=== PATIENT | female | born 1965 | race Caucasian/White ===

== ENCOUNTER 2017-11-06 16:05 | Observation (INO) | payer OTHER ==
[~2017-11-06] VITALS: Ht 167.6 cm; Wt 70.8 kg
[2017-11-06] MEDS ORDERED: HYDROMORPHONE 1MG/1ML INJ IV STA (17:33)
[2017-11-06] MEDS ORDERED: PANTOPRAZOLE 40 MG 10ML VIAL IV STA (17:33)
[2017-11-06] MEDS ORDERED: ONDANSETRON HCL INJ 2 MG/ML VIAL IV STA (17:33)
[2017-11-06 17:48] LABS: BASOPHILS # (AUTO) 0.1 (0.0-0.1); BASOPHILS % 1.9 % (0.0-1.0); EOSINOPHILS # (AUTO) 0.1 (0.0-0.4); EOSINOPHILS % 2.4 % (0.0-6.0); HEMOGLOBIN 11.8 g/dL (12.0-16.0); LYMPHOCYTES # (AUTO) 0.6 (1.0-3.2); LYMPHOCYTES % 13.8 % (18.0-39.1); MEAN CORPUSCULAR HEMOGLOBIN 29.1 pg (28-32); MEAN CORPUSCULAR HGB CONC 32.8 g/dL (31-35); MEAN CORPUSCULAR VOLUME 88.7 fL (81-99); MONOCYTES # (AUTO) 0.7 (0.2-0.8); MONOCYTES % 16.9 % (4.4-11.3); NEUTROPHILS # (AUTO) 2.7 (2.1-6.9); NEUTROPHILS % 64.8 % (38.7-80.0); RED BLOOD COUNT 4.06 x10e6/uL (3.6-5.1); RED CELL DISTRIBUTION WIDTH 15.9 % (11.7-14.4)
[2017-11-06 17:50] LABS: PLATELET COUNT 79 x10e3/uL (140-360)
[2017-11-06 18:00] LABS: ALANINE AMINOTRANSFERASE 34 IU/L (0-55); ALBUMIN 3.3 g/dL (3.5-5.0); ALBUMIN/GLOBULIN RATIO 1.1 (0.8-2.0); ALKALINE PHOSPHATASE 186 IU/L (40-150); AMYLASE 40 U/L (25-125); ANION GAP 13.5 mmol/L (8-16); BLOOD UREA NITROGEN < 5 mg/dL (7-26); CALCIUM 8.8 mg/dL (8.4-10.2); CARBON DIOXIDE 30 mmol/L (22-29); CHLORIDE 103 mmol/L (98-107); CREATININE, SERUM 0.72 mg/dL (0.57-1.11); EST GLOMERULAR FILTRATION RATE > 60 ML/MIN (60-); GLUCOSE 80 mg/dL (74-118); LIPASE 21 U/L (8-78); POTASSIUM 3.5 mmol/L (3.5-5.1); SODIUM 143 mmol/L (136-145)
[2017-11-06 18:01] LABS: BUN/CREATININE RATIO 7 (6-25)
[2017-11-06] MEDS ORDERED: PHYTONADIONE 10 MG/ML AMP SQ NR (18:45)
[2017-11-06 18:52] LABS: CLARITY,URINE SL CLOUDY (CLEAR); COLOR,URINE YELLOW (YELLOW)
[2017-11-06 18:53] LABS: BILIRUBIN,URINE NEGATIVE (NEGATIVE); KETONES,URINE NEGATIVE (NEGATIVE); LEUKOCYTE ESTERASE ,URINE 1+ (NEGATIVE); NITRITE,URINE NEGATIVE (NEGATIVE); PROTEIN,URINE DIPSTICK NEGATIVE (NEGATIVE); URINE UROBILINOGEN 0.2 mg/dL (0.2 - 1)
[2017-11-06] MEDS ORDERED: OXYCODONE HCL IR 5 MG TAB PO PRN (19:00)
[2017-11-06 19:02] LABS: INR 2.32; PARTIAL THROMBOPLASTIN TIME 37.4 seconds (23.8-35.5); PROTHROMBIN TIME 23.9 seconds (11.9-14.5)
[2017-11-06 19:06] LABS: BACTERIA,URINE MODERATE /HPF; EPITHELIAL CELLS,URINE FEW /LPF; TRANSITIONAL EPI CELLS,URINE FEW
[2017-11-06] MEDS: D5.45%NS/KCL 20MEQ 1,000 ML IV SCH (19:34)
[2017-11-06 20:41] VITALS: BP 128/94
[2017-11-06] MEDS ORDERED: ZOLPIDEM TARTRATE 5 MG TAB PO PRN (21:15)
[2017-11-06] MEDS: PROPRANOLOL HCL 10 MG TAB PO SCH (21:44)
[2017-11-06] MEDS: AMITRIPTYLINE HCL 25 MG TAB PO SCH (21:47)
[2017-11-06 22:10] VITALS: BP 128/94
[2017-11-06] MEDS ORDERED: SYMBICORT 16010.2 GM INH (23:10)
[2017-11-06] MEDS ORDERED: AMITRIPTYLINE H25 MG PO (23:10)
[2017-11-06] MEDS ORDERED: PROPRANOLOL HCL10 MG PO (23:30)
[2017-11-06] MEDS ORDERED: COMBIVENT RESPIM4 GM IH (23:30)
[2017-11-06] MEDS ORDERED: COUMADIN2 MG PO (23:30)
[2017-11-06] MEDS ORDERED: NEXIUM40 MG PO (23:30)
[2017-11-06] MEDS ORDERED: AMBIEN10 MG PO (23:30)
[2017-11-06] MEDS ORDERED: SUCRALFATE1 G/10 ML PO (23:30)
[2017-11-06] MEDS ORDERED: LASIX40 MG PO (23:30)
[2017-11-06] MEDS ORDERED: SEROQUEL25 MG PO (23:30)
[2017-11-06] MEDS ORDERED: BENADRYL25 M1 PO (23:30)
[2017-11-06] MEDS ORDERED: SINGULAIR10 MG INH (23:30)
[2017-11-06] MEDS ORDERED: PREDNISONE20 MG PO (23:30)
[2017-11-06] MEDS ORDERED: XIFAXAN550 MG PO (23:30)
[2017-11-06] MEDS ORDERED: DIAZEPAM5 MG PO (23:30)
[2017-11-06] MEDS ORDERED: SPIRONOLACTONE25 MG PO (23:30)
[2017-11-06 23:50] VITALS: BP 93/62
[2017-11-07] VITALS (9 sets, daily range): BP systolic 82–111; BP diastolic 54–74
[2017-11-07 00:06] LABS: HEMATOCRIT 32.2 % (34.2-44.1); HEMOGLOBIN 10.5 g/dL (12.0-16.0)
[2017-11-07 05:51] LABS: HEMATOCRIT 31.1 % (34.2-44.1); HEMOGLOBIN 10.2 g/dL (12.0-16.0)
[2017-11-07 06:09] LABS: ANION GAP 10.6 mmol/L (8-16); BLOOD UREA NITROGEN 6 mg/dL (7-26); BUN/CREATININE RATIO 9 (6-25); CALCIUM 8.7 mg/dL (8.4-10.2); CARBON DIOXIDE 30 mmol/L (22-29); CHLORIDE 106 mmol/L (98-107); CREATININE, SERUM 0.67 mg/dL (0.57-1.11); EST GLOMERULAR FILTRATION RATE > 60 ML/MIN (60-); GLUCOSE 96 mg/dL (74-118); POTASSIUM 3.6 mmol/L (3.5-5.1); SODIUM 143 mmol/L (136-145)
[2017-11-07] MEDS ORDERED: MORPHINE SULFATE INJ 4 MG/ML INJ IV PRN (06:45)
[2017-11-07] MEDS ORDERED: LEVOFLOXACIN 500MG/D5W 100ML 100 ML IV SCH (07:00)
[2017-11-07] MEDS ORDERED: BUDESONIDE/FORMOTEROL 160/4.5MCG INHALER INH SCH (07:00)
[2017-11-07] MEDS: RIFAXIMIN 550 MG TABLET PO SCH ×2 (07:48→22:16)
[2017-11-07] MEDS: CEFTRIAXONE SOD 1 GM VIAL IV SCH (07:48)
[2017-11-07] MEDS: SUCRALFATE 1 GM/10 ML SUSP PO SCH ×4 (07:48→22:16)
[2017-11-07] MEDS: MORPHINE SULFATE 2 MG/ML SYR IV PRN (07:49)
[2017-11-07] MEDS ORDERED: QUETIAPINE FUMARATE 25 MG TAB PO SCH (09:00)
[2017-11-07] MEDS ORDERED: MONTELUKAST SODIUM 10 MG TAB PO SCH (09:00)
--- NOTE | 2017-11-07 09:57 | Consultation ---
DATE OF CONSULTATION: November 07, 2017 GASTROENTEROLOGY CONSULTATION REASON FOR CONSULTATION: Hematemesis. HISTORY OF PRESENT ILLNESS: Ms. Wan is a 52-year-old woman with known history of hepatitis C, alcoholic cirrhosis, history of portal hypertension, and esophageal variceal banding. She had a large volume of red emesis at home. She denies any melena or hematochezia. She says she is very hungry. She has chronic abdominal pain and complains about umbilical hernia. Otherwise, she denies any increase in her abdominal pain. She denies taking NSAIDs. Her last paracentesis was over a week ago at [facility]. PAST MEDICAL HISTORY 1. Hepatitis C. 2. 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 3. Hypertension. 4. Portal hypertension with history of esophageal varices and chronic ascites requiring paracentesis. 5. History of intra-abdominal thrombosis. She says related to her bowel. Currently on Coumadin. MEDICATIONS: Are reviewed. Please see [facility] medication reconciliation form. ALLERGIES: ARE REVIEWED. PLEASE SEE [facility] MEDICATION RECONCILIATION FORM. SOCIAL HISTORY: Positive for ongoing tobacco. Prior alcohol. REVIEW OF SYSTEMS: A 12-system review is positive for that mentioned in the HPI, otherwise unremarkable. PHYSICAL EXAMINATION GENERAL: She is awake and oriented. However, she slurs her speech. HEENT: Pupils are equal, round and reactive to light. NECK: Supple. LUNGS: Clear. CARDIOVASCULAR: S1 and S2. ABDOMEN: Soft. It is protuberant with ascites. She has a periumbilical hernia, which is discolored. However, reducible and mildly tender. EXTREMITIES: No clubbing or cyanosis. PSYCH: Calm and cooperative. NEUROLOGIC: Alert and oriented, but slurs speech. HEM/ONC: No bruising or adenopathy. The electronic health records were reviewed for laboratory and radiologic studies, as well as history. ASSESSMENT 1. Reported hematemesis with a history of portal hypertension. 2. History of esophageal varices with banding: Noted a drop in her hemoglobin. 3. Cirrhosis related to hepatitis C and alcohol. 4. Elevated liver function tests secondary to the above, likely hepatitis C. 5. Coagulopathy which is at least in part related to anticoagulation for history of venous thrombosis. PLAN: At the current time, will need to do an upper endoscopy for risk stratification and therapeutics. Ideally, we would reverse her anticoagulation for this procedure. Will plan on this urgently today after some FFP. I discussed risks, benefits and alternatives with the patient. She is in agreement. For now, will continue n.p.o. status and supportive care. Thank you very much for asking me to see Ms. Wan. Any questions or concerns, please do not hesitate to contact me. I will follow with you closely. Job#: [id number] HECTOR
[2017-11-07] MEDS: PANTOPRAZOLE 40 MG 10ML VIAL IV SCH ×2 (10:12→18:35)
[2017-11-07] MEDS: SPIRONOLACTONE 25 MG TAB PO SCH (10:12)
[2017-11-07] MEDS: MONTELUKAST SODIUM 10 MG TAB PO SCH (10:13)
[2017-11-07] MEDS: PROPRANOLOL HCL 10 MG TAB PO SCH ×2 (10:13→18:35)
[2017-11-07] MEDS: FUROSEMIDE 40 MG TAB PO SCH (10:13)
[2017-11-07] MEDS: QUETIAPINE FUMARATE 100 MG TAB PO SCH ×2 (10:13→18:35)
[2017-11-07] MEDS: DIAZEPAM 5 MG TAB PO SCH ×3 (10:13→22:16)
[2017-11-07] MEDS ORDERED: SODIUM CHLORIDE 0.9% 250ML 250 ML ONE (10:37)
--- NOTE | 2017-11-07 11:32 | History and Physical ---
PRIMARY CARE PHYSICIAN: Dr. Silvio Fuentes CHIEF COMPLAINT: Vomiting blood. HISTORY OF PRESENT ILLNESS: This is a 52-year-old woman with a history of abdominal venous thromboembolism who is maintained on Coumadin, now developing vomiting episode with blood. The patient states that she recently had a paracentesis last week. Now, when she was at home she felt nauseous and stuck her finger down her throat and induced vomiting. When she vomited, there was a lot of blood. Therefore, she came to the hospital. The patient does have a history of peptic ulcer disease and is on medication regimen. Her last EGD and colonoscopy were about 1 year ago. She has mild abdominal discomfort, which she states is minimal. Denies any chest pain or shortness of breath. She has not had any GI bleeding in the past. PAST MEDICAL HISTORY: Cirrhosis, hepatitis C virus infection, hypertension, abdominal venous thromboembolism, colonic mass in 2009, status post resection which the patient states was benign, anxiety disorder. PAST SURGICAL HISTORY: Colonic mass resection, cholecystectomy, tubal ligation. ALLERGIES: PER ELECTRONIC MEDICAL RECORD. FAMILY HISTORY/SOCIAL HISTORY: She quit alcohol and cigarettes 1 year ago. She has several children. MEDICATIONS: Per electronic medical records. REVIEW OF SYSTEMS: Denies any dizziness, chest pain or shortness of breath. PHYSICAL EXAMINATION VITAL SIGNS: Have been reviewed. GENERAL: A tired-appearing woman resting in bed. HEENT: Atraumatic. CARDIOVASCULAR: Normal S1 and S2. LUNGS: Moderate breath sounds. ABDOMEN: Soft and nondistended. She has an umbilical hernia present. She has minimal lower abdominal discomfort. No rebound. No guarding. EXTREMITIES: No edema or calf tenderness. NEUROLOGICAL: She is alert and oriented times 3. She is moving all extremities. SKIN: Dry. PSYCHIATRIC: Flat affect. LABS: Reviewed. MEDICATIONS: Reviewed. ASSESSMENT AND PLAN: This is a 52-year-old woman with: 1. Hematemesis: Will hold Coumadin at this time. Will continue proton pump inhibitor. Gastroenterology consultation for esophagogastroduodenoscopy before resuming Coumadin. 2. Abdominal venous thromboembolism: Will hold Coumadin at this time. INR was therapeutic yesterday at 2.32. 3. Cirrhosis: Hematemesis could have been secondary to variceal bleeding. Will await gastroenterology evaluation and endoscopy. Will continue Xifaxan. 4. Peptic ulcer disease: Will continue proton pump inhibitor. 5. Pancytopenia secondary to cirrhosis: Hemoglobin was 11.8 and now 10.5. Platelets 79,000. 6. History of colonic mass in 2010: Status post resection. Will obtain a computerized tomography scan of the abdomen to further evaluate the patient in the setting of hematemesis. 7. Urinary tract infection: Will treat with Levaquin. 8. Fluid overload: The patient is on Lasix 40 mg daily. Will continue regimen. 9. Anxiety disorder: Will continue diazepam. 10. Prophylaxis: Will use sequential compression devices and proton pump inhibitor. 11. Disposition: Obtain computerized tomography scan of the abdomen and pelvis. Follow up gastroenterology recommendations. Job#: [id number] HECTOR
--- NOTE | 2017-11-07 13:09 | Diagnostic Imaging Report ---
PROCEDURE:CT ABDOMEN AND PELVIS WITH CONTRAST COMPARISON:None. INDICATIONS:Hemoptysis TECHNIQUE: Routine protocol Volumetric CT abdomen and pelvis after administration of 100 mL Isovue-370 intravenous contrast. Multiplanar reformatted images. FINDINGS: Calcified left lower lobe granuloma. Otherwise, clear lung bases. No pleural effusions. Normal heart size. Liver: Nodular contour. Gallbladder: Cholecystectomy. No bile duct dilation. Pancreas: Normal Spleen: Span 17 cm. Otherwise, normal Adrenal glands: Normal Kidneys: Normal Ureters and urinary bladder: Normal Uterus and adnexa: Normal. Tubal ligation. Bowel: Normal caliber. Subtle enhancement along the circumference of the distal esophagus. Appendectomy. Peritoneum: Small volume ascites. Vasculature: Normal caliber. Mild atherosclerosis of the abdominal aorta. Patent portal venous system. Lymph nodes: Normal Skeleton: Intact. Soft tissues: Low attenuation at the umbilicus in keeping with sequestered ascites with associated hernia. CONCLUSION: 1. Cirrhosis with associated splenomegaly and small volume ascites. 2. Mild enhancement of the distal aspect of the esophagus suspicious for small underlying varices. Dictated by: Phillip Wahl M.D. on 11/07/2017 at 13:12 Electronically approved by: Phillip Wahl M.D. on 11/07/2017 at 13:12
[2017-11-07] MEDS ORDERED: PROPOFOL IV EMULSION 10 MG/ML 20 ML VIAL ONE (17:43)
[2017-11-07] MEDS: D5.45%NS/KCL 20MEQ 1,000 ML IV SCH (17:43)
[2017-11-07] MEDS ORDERED: MIDAZOLAM HCL 2 MG/2 ML VIAL ONE (17:43)
[2017-11-07] MEDS: LACTULOSE SYRUP 20 GM/30 ML UDC PO SCH (18:35)
[2017-11-07] MEDS ORDERED: IOPAMIDOL 370 MG/ML 200 ML INFUS..BTL INJ ONE (19:18)
[2017-11-07] MEDS ORDERED: SODIUM CHLORIDE 0.9% 50ML 50 ML ONE (19:18)
[2017-11-07] MEDS ORDERED: AMITRIPTYLINE HCL 25 MG TAB PO SCH (21:00)
[2017-11-07] MEDS: AMITRIPTYLINE HCL 25 MG TAB PO SCH (22:16)
[2017-11-08] MEDS: MORPHINE SULFATE 2 MG/ML SYR IV PRN
[2017-11-08 00:28] VITALS: BP 115/72
[2017-11-08 03:20] LABS: HEMATOCRIT 28.9 % (34.2-44.1); HEMOGLOBIN 9.2 g/dL (12.0-16.0)
[2017-11-08 04:00] VITALS: BP 113/71
[2017-11-08 06:02] LABS: HEMATOCRIT 28.4 % (34.2-44.1)
[2017-11-08] MEDS: D5.45%NS/KCL 20MEQ 1,000 ML IV SCH (06:51)
[2017-11-08 08:08] VITALS: BP 106/71
[2017-11-08 08:41] LABS: INR 1.76; PROTHROMBIN TIME 19.3 seconds (11.9-14.5)
[2017-11-08] MEDS: SPIRONOLACTONE 25 MG TAB PO SCH (09:31)
[2017-11-08] MEDS: PANTOPRAZOLE 40 MG 10ML VIAL IV SCH ×2 (09:31→16:59)
[2017-11-08] MEDS: CEFTRIAXONE SOD 1 GM VIAL IV SCH (09:31)
[2017-11-08] MEDS: SUCRALFATE 1 GM/10 ML SUSP PO SCH ×4 (09:31→16:59)
[2017-11-08] MEDS: DIAZEPAM 5 MG TAB PO SCH ×2 (09:33→15:00)
[2017-11-08] MEDS: QUETIAPINE FUMARATE 100 MG TAB PO SCH ×2 (09:33→16:22)
[2017-11-08] MEDS: LACTULOSE SYRUP 20 GM/30 ML UDC PO SCH ×2 (09:33→16:22)
[2017-11-08] MEDS: FUROSEMIDE 40 MG TAB PO SCH (09:33)
[2017-11-08] MEDS: PROPRANOLOL HCL 10 MG TAB PO SCH ×2 (09:33→17:00)
[2017-11-08] MEDS: MONTELUKAST SODIUM 10 MG TAB PO SCH (09:33)
[2017-11-08] MEDS: RIFAXIMIN 550 MG TABLET PO SCH (09:34)
[2017-11-08] MEDS ORDERED: LACTULOSE20 GM/30 M PO (11:35)
[2017-11-08] MEDS ORDERED: LACTULOSE SYRUP 20 GM/30 ML UDC PO STA (11:36)
[2017-11-08] MEDS ORDERED: ZOLPIDEM TARTRATE 10 MG TAB PO PRN (11:45)
--- NOTE | 2017-11-08 12:08 | Discharge Summary ---
PRINCIPAL DIAGNOSES 1. Portal hypertensive gastropathy. 2. Hiatal hernia. 3. Gastritis. 4. Esophageal varices. 5. Hematemesis. 6. Pancytopenia secondary to cirrhosis. 7. Fluid overload. 8. Urinary tract infection. 9. Anxiety disorder. SECONDARY DIAGNOSES 1. Cirrhosis. 2. Abdominal venous thromboembolism. 3. History of colonic mass in 2009. CHIEF COMPLAINT: Vomiting blood. HISTORY OF PRESENT ILLNESS: This is a 52-year-old woman who was vomiting blood. Please refer to the H and P for further details. HOSPITAL COURSE: The patient underwent EGD, which showed portal hypertensive gastropathy, esophageal varices, gastritis, and hiatal hernia. She has a history of cirrhosis. She is at risk for bleeding. She does use Coumadin and is therapeutic for treatment of abdominal venous thromboembolism. The benefits may outweigh the risks, but it is unclear at this time. We will continue medication, and I will leave the decision to her primary care physician. DISCHARGE MEDICATIONS: Per electronic medical record and include proton pump inhibitor. FOLLOWUP: With primary care doctor in 1 week. CONDITION ON DISCHARGE: Stable and improved. H and H have remained relatively stable. DISCHARGE LOCATION: Home. CLIF MELENDEZ MD Job#: [id number]
[2017-11-08 12:51] LABS: HEMATOCRIT 33.6 % (34.2-44.1); HEMOGLOBIN 10.6 g/dL (12.0-16.0)
[2017-11-08 12:55] VITALS: BP 105/64
--- NOTE | 2017-11-08 13:39 | Diagnostic Imaging Report ---
PROCEDURE:US ABDOMEN LIMITED COMPARISON:None. INDICATIONS:ascites r/o sbp TECHNIQUE: The abdomen was scanned in the 4 quadrants in grayscale. FINDINGS: Sonographic evaluation of the 4 quadrants of the abdomen shows scant perihepatic and perisplenic ascites, of insufficient quantity for safe percutaneous sampling. CONCLUSION: Aborted paracentesis secondary to insufficient ascitic fluid for safe percutaneous sampling. Dictated by: Justice Gonzalez M.D. on 11/08/2017 at 13:42 Electronically approved by: Justice Gonzalez M.D. on 11/08/2017 at 13:42
[2017-11-08 16:34] VITALS: BP 99/64
--- NOTE | 2017-11-10 11:53 | Diagnostic Imaging Report ---
PROCEDURE:US GUIDANCE FOR VASCULAR ACCESS COMPARISON:None. INDICATIONS:Not provided. FINDINGS:Ultrasound evaluation of potential access sites was performed. After successfully identifying a patent vessel, US guidance was used to puncture the vein. A permanent recording was created for the patient record. CONCLUSION:Successful IV access by Ultrasound guidance. Jame Yang M.D. Dictated by: Jame Yang M.D. on 11/10/2017 at 11:57 Electronically approved by: Jame Yang M.D. on 11/10/2017 at 11:57
== END 2017-11-08 18:02 | disposition home or self-care (01) ==
LOC: ER 16:08 → ERHOLD 18:52 → MED/SURG2 20:25
PROVIDERS: ADMIT Internal Medicine; ATTEND Internal Medicine
DX: K76.6 Portal hypertension (principal); K31.89 Other diseases of stomach and duodenum; K44.9 Diaphragmatic hernia without obstruction or gangrene; K70.31 Alcoholic cirrhosis of liver with ascites; D69.6 Thrombocytopenia, unspecified; Z79.01 Long term (current) use of anticoagulants; K92.0 Hematemesis; K27.9 Peptic ulcer, site unspecified, unspecified as acute or chronic, without hemorrhage or perforation; D61.818 Other pancytopenia; N39.0 Urinary tract infection, site not specified; F41.9 Anxiety disorder, unspecified; E87.70 Fluid overload, unspecified; D50.0 Iron deficiency anemia secondary to blood loss (chronic); I85.10 Secondary esophageal varices without bleeding; F10.10 Alcohol abuse, uncomplicated; K29.70 Gastritis, unspecified, without bleeding; I82.890 Acute embolism and thrombosis of other specified veins; D68.9 Coagulation defect, unspecified
CPT/HCPCS: 36415 ×3; 43239; 43244; 74177; 76705; 76937; 80048; 80053; 81001; 82140; 82150; 83690; 85014 ×3; 85018 ×3; 85025; 85610 ×2; 85730; 86850; 86900; 88305; 88312; 93005; 94640 ×2; 99284; G0378 ×3; J0696 ×2; J1170; J2250; J2270; J2405; J3430; J7050; P9017; Q9967